=== PATIENT | male | born 1975 | race Caucasian/White ===

== ENCOUNTER 2020-07-15 09:52 | Emergency (ER) | payer BC, OTHER ==
[2020-07-15] MEDS ORDERED: Sodium Chloride 0.9% 10 ML Syringe FLUSH PRN (09:53)
[2020-07-15] MEDS ORDERED: Sodium Chloride 0.9% 2.5 ML Syringe FLUSH PRN (09:53)
--- NOTE | 2020-07-15 10:15 | EDM.PDOC ---
ED HPI GENERAL MEDICAL PROBLEM - General Chief Complaint: Respiratory Problem Stated Complaint: SOB Time Seen by Provider: 07/15/20 09:53 Source of Information: Reports: Patient History Limitations: Reports: No Limitations - History of Present Illness INITIAL COMMENTS - FREE TEXT/NARRATIVE: 44-year-old male with no past medical history presents with shortness of breath. He has been feeling sick for the past week, has been having vomiting and nonbloody diarrhea for the past week. This morning his symptoms worsen, now feels more short of breath and weak, associated with subjective fever, cough with bloody greenish sputum, sweats. He denies headache, abdominal pain, chest pain, changes in urine output, pedal edema. He does not undergo routine physical exams, his last doctor visit was about 3 years ago. He does not use oxygen at home. He does not smoke cigarettes. ROS: A 10-point review of systems, other than pertinent positives and negatives as stated per HPI, is otherwise negative Past medical history: No additional pertinent history Past Surgical history: No additional pertinent history Social history: No additional pertinent history Family history: No additional pertinent history PHYSICAL EXAM Pulse ox: 50%, interpretation = hypoxic General: AOx4, GCS = 15, ill-appearing, moderate distress, obese HEENT: dry mucous membrane Skin: Clammy Neck: supple, no meningismus, no Kernig or Brudzinski Cardiac: S1S2 tachycardia Respiratory: diffuse rales, no wheezing, tachypneic RR = 40, moderate respiratory distress Abdomen: Soft, nontender, no rebound or guarding, nondistended, no pulsatile mass. Back: nontender Musculoskeletal: NVI distally, no deformity Neuro: No focal deficits - Related Data Allergies Allergy/AdvReac Type Severity Reaction Status Date / Time No Known Allergies Allergy Verified 07/15/20 10:00 Home Meds: Home Meds . [No Known Home Meds] 07/15/20 [History] ED ROS GENERAL - Review of Systems Review Of Systems: Comprehensive ROS is negative, except as noted in HPI. (see dictation) ED EXAM, GENERAL - Physical Exam Exam: See Below (see dictation) EKG INTERPRETATION EKG Interpretation Comments: 101 bpm, sinus tachycardia, normal QRS interval, no STEMI. EKG and rhythm strip interpreted by me at 1014 Course - Vital Signs Last Recorded V/S: Last Vital Signs Temp 96.1 F L 07/15/20 10:00 Pulse 90 07/15/20 14:58 Resp 26 H 07/15/20 14:58 BP 157/106 H 07/15/20 14:58 Pulse Ox 93 L 07/15/20 14:58 - Orders/Labs/Meds Orders: Active Orders 24 hr Category Date Time Status Cardiac Monitoring [RC] . DIRECTED Care 07/15/20 09:53 Active EKG Documentation Completion [RC] STAT Care 07/15/20 09:54 Active Pulse Oximetry [RC] ASDIRECTED Care 07/15/20 09:53 Active RT BiPAP/CPAP [RC] ASDIRECTED Care 07/15/20 10:33 Active CULTURE BLOOD [BC] Routine Lab 07/15/20 10:39 Results CULTURE BLOOD [BC] Stat Lab 07/15/20 10:04 Received PROCALCITONIN [REF] Stat Lab 07/15/20 10:04 Received Azithromycin [Zithromax] 500 mg Med 07/15/20 11:00 Active Sodium Chloride 0.9% [Normal Saline (AdvBag)] 250 ml IV ONETIME Sodium Chloride 0.9% [Saline Flush] Med 07/15/20 09:53 Active 10 ml FLUSH ASDIRECTED PRN Sodium Chloride 0.9% [Saline Flush] Med 07/15/20 09:53 Active 2.5 ml FLUSH ASDIRECTED PRN dexAMETHasone [Dexamethasone] Med 07/15/20 10:30 Active 6 mg IVPUSH DAILY Isolation [COMM] Stat Oth 07/15/20 10:07 Active Saline Lock Insert [OM.PC] Stat Oth 07/15/20 09:53 Ordered Medication Orders Dexamethasone (Dexamethasone) 6 mg IVPUSH DAILY JULES Stop: 07/24/20 09:01 Last Admin: 07/15/20 10:26 Dose: 6 mg Documented by: PEDRO Azithromycin 500 mg/ Sodium (Chloride) 250 mls @ 250 mls/hr IV ONETIME JULES Last Admin: 07/15/20 12:09 Dose: 250 mls/hr Documented by: PEDRO Sodium Chloride (Saline Flush) 10 ml FLUSH ASDIRECTED PRN PRN Reason: Keep Vein Open Last Admin: 07/15/20 10:27 Dose: 10 ml Documented by: PEDRO Sodium Chloride (Saline Flush) 2.5 ml FLUSH ASDIRECTED PRN PRN Reason: Keep Vein Open Last Admin: 07/15/20 10:27 Dose: 2.5 ml Documented by: PEDRO Labs: Laboratory Tests 07/15/20 07/15/20 07/15/20 Range/Units 10:04 10:04 10:04 WBC 17.01 H (4.0-11.0) K/uL RBC 5.36 (4.50-5.90) M/uL Hgb 15.8 (13.0-17.0) g/dL Hct 45.8 (38.0-50.0) % MCV 85.4 (80.0-98.0) fL MCH 29.5 (27.0-32.0) pg MCHC 34.5 (31.0-37.0) g/dL RDW Std Deviation 44.0 (28.0-62.0) fl RDW Coeff of Abdi 14 (11.0-15.0) % Plt Count 306 (150-400) K/uL MPV 10.10 (7.40-12.00) fL Add Manual Diff YES Neutrophils % (Manual) 88 H (48.0-80.0) % Band Neutrophils % 2 % Lymphocytes % (Manual) 4 L (16.0-40.0) % Monocytes % (Manual) 6 (0.0-15.0) % Nucleated RBC % 1.4 /100WBC Absolute Seg Neuts 15.0 H (1.4-5.7) Band Neutrophils # 0.3 Lymphocytes # (Manual) 0.7 (0.6-2.4) Monocytes # (Manual) 1.0 H (0.0-0.8) Nucleated RBCs # 0 K/uL INR D-Dimer, Quantitative (0.0-0.50) mg/L FEU ABG pH (7.35-7.45) ABG pCO2 (35-45) mmHG ABG pO2 (75-100) mmHG ABG HCO3 (22-26) mEq/L ABG Total CO2 ABG Base Excess (-2.0-2.0) Lactate (0.20-2.00) mmol/L Sodium 126 L (136-148) mmol/L Potassium 3.5 (3.5-5.1) mmol/L Chloride 87 L (98-107) mmol/L Carbon Dioxide 28.3 (21.0-32.0) mmol/L BUN 15 (7.0-18.0) mg/dL Creatinine 1.5 H (0.8-1.3) mg/dL Est Cr Clr Drug Dosing 76.35 mL/min Estimated GFR (MDRD) 50.6 ml/min Glucose 144 H (74-106) mg/dL Calcium 8.1 L (8.5-10.1) mg/dL Ferritin (26-388) ng/mL Total Bilirubin 0.7 (0.2-1.0) mg/dL AST 41 H (15-37) IU/L ALT 41 (14-63) IU/L Alkaline Phosphatase 39 L (46-116) U/L Lactate Dehydrogenase (81-234) U/L Troponin I 0.100 H* (0.000-0.056) ng/mL C-Reactive Protein (0.00-0.90) mg/dL B-Natriuretic Peptide 93 (<100) PG/ML Total Protein 7.8 (6.4-8.2) g/dL Albumin 2.8 L (3.4-5.0) g/dL Globulin 5.0 H (2.6-4.0) g/dL Albumin/Globulin Ratio 0.6 L (0.9-1.6) SARS-CoV-2 RNA (REJI) (NEGATIVE) 07/15/20 07/15/20 07/15/20 Range/Units 10:04 10:04 10:04 WBC (4.0-11.0) K/uL RBC (4.50-5.90) M/uL Hgb (13.0-17.0) g/dL Hct (38.0-50.0) % MCV (80.0-98.0) fL MCH (27.0-32.0) pg MCHC (31.0-37.0) g/dL RDW Std Deviation (28.0-62.0) fl RDW Coeff of Abdi (11.0-15.0) % Plt Count (150-400) K/uL MPV (7.40-12.00) fL Add Manual Diff Neutrophils % (Manual) (48.0-80.0) % Band Neutrophils % % Lymphocytes % (Manual) (16.0-40.0) % Monocytes % (Manual) (0.0-15.0) % Nucleated RBC % /100WBC Absolute Seg Neuts (1.4-5.7) Band Neutrophils # Lymphocytes # (Manual) (0.6-2.4) Monocytes # (Manual) (0.0-0.8) Nucleated RBCs # K/uL INR 1.09 D-Dimer, Quantitative 2.51 H (0.0-0.50) mg/L FEU ABG pH (7.35-7.45) ABG pCO2 (35-45) mmHG ABG pO2 (75-100) mmHG ABG HCO3 (22-26) mEq/L ABG Total CO2 ABG Base Excess (-2.0-2.0) Lactate (0.20-2.00) mmol/L Sodium (136-148) mmol/L Potassium (3.5-5.1) mmol/L Chloride (98-107) mmol/L Carbon Dioxide (21.0-32.0) mmol/L BUN (7.0-18.0) mg/dL Creatinine (0.8-1.3) mg/dL Est Cr Clr Drug Dosing mL/min Estimated GFR (MDRD) ml/min Glucose (74-106) mg/dL Calcium (8.5-10.1) mg/dL Ferritin 729 H (26-388) ng/mL Total Bilirubin (0.2-1.0) mg/dL AST (15-37) IU/L ALT (14-63) IU/L Alkaline Phosphatase (46-116) U/L Lactate Dehydrogenase (81-234) U/L Troponin I (0.000-0.056) ng/mL C-Reactive Protein (0.00-0.90) mg/dL B-Natriuretic Peptide (<100) PG/ML Total Protein (6.4-8.2) g/dL Albumin (3.4-5.0) g/dL Globulin (2.6-4.0) g/dL Albumin/Globulin Ratio (0.9-1.6) SARS-CoV-2 RNA (REJI) (NEGATIVE) 07/15/20 07/15/20 07/15/20 Range/Units 10:04 10:14 10:14 WBC (4.0-11.0) K/uL RBC (4.50-5.90) M/uL Hgb (13.0-17.0) g/dL Hct (38.0-50.0) % MCV (80.0-98.0) fL MCH (27.0-32.0) pg MCHC (31.0-37.0) g/dL RDW Std Deviation (28.0-62.0) fl RDW Coeff of Abdi (11.0-15.0) % Plt Count (150-400) K/uL MPV (7.40-12.00) fL Add Manual Diff Neutrophils % (Manual) (48.0-80.0) % Band Neutrophils % % Lymphocytes % (Manual) (16.0-40.0) % Monocytes % (Manual) (0.0-15.0) % Nucleated RBC % /100WBC Absolute Seg Neuts (1.4-5.7) Band Neutrophils # Lymphocytes # (Manual) (0.6-2.4) Monocytes # (Manual) (0.0-0.8) Nucleated RBCs # K/uL INR D-Dimer, Quantitative (0.0-0.50) mg/L FEU ABG pH 7.496 H (7.35-7.45) ABG pCO2 37 (35-45) mmHG ABG pO2 74 L (75-100) mmHG ABG HCO3 29 H (22-26) mEq/L ABG Total CO2 24.4 ABG Base Excess 5.1 H (-2.0-2.0) Lactate 2.1 H* (0.20-2.00) mmol/L Sodium (136-148) mmol/L Potassium (3.5-5.1) mmol/L Chloride (98-107) mmol/L Carbon Dioxide (21.0-32.0) mmol/L BUN (7.0-18.0) mg/dL Creatinine (0.8-1.3) mg/dL Est Cr Clr Drug Dosing mL/min Estimated GFR (MDRD) ml/min Glucose (74-106) mg/dL Calcium (8.5-10.1) mg/dL Ferritin (26-388) ng/mL Total Bilirubin (0.2-1.0) mg/dL AST (15-37) IU/L ALT (14-63) IU/L Alkaline Phosphatase (46-116) U/L Lactate Dehydrogenase 569 H (81-234) U/L Troponin I (0.000-0.056) ng/mL C-Reactive Protein 52.70 H (0.00-0.90) mg/dL B-Natriuretic Peptide (<100) PG/ML Total Protein (6.4-8.2) g/dL Albumin (3.4-5.0) g/dL Globulin (2.6-4.0) g/dL Albumin/Globulin Ratio (0.9-1.6) SARS-CoV-2 RNA (REJI) (NEGATIVE) 07/15/20 Range/Units 10:16 WBC (4.0-11.0) K/uL RBC (4.50-5.90) M/uL Hgb (13.0-17.0) g/dL Hct (38.0-50.0) % MCV (80.0-98.0) fL MCH (27.0-32.0) pg MCHC (31.0-37.0) g/dL RDW Std Deviation (28.0-62.0) fl RDW Coeff of Abdi (11.0-15.0) % Plt Count (150-400) K/uL MPV (7.40-12.00) fL Add Manual Diff Neutrophils % (Manual) (48.0-80.0) % Band Neutrophils % % Lymphocytes % (Manual) (16.0-40.0) % Monocytes % (Manual) (0.0-15.0) % Nucleated RBC % /100WBC Absolute Seg Neuts (1.4-5.7) Band Neutrophils # Lymphocytes # (Manual) (0.6-2.4) Monocytes # (Manual) (0.0-0.8) Nucleated RBCs # K/uL INR D-Dimer, Quantitative (0.0-0.50) mg/L FEU ABG pH (7.35-7.45) ABG pCO2 (35-45) mmHG ABG pO2 (75-100) mmHG ABG HCO3 (22-26) mEq/L ABG Total CO2 ABG Base Excess (-2.0-2.0) Lactate (0.20-2.00) mmol/L Sodium (136-148) mmol/L Potassium (3.5-5.1) mmol/L Chloride (98-107) mmol/L Carbon Dioxide (21.0-32.0) mmol/L BUN (7.0-18.0) mg/dL Creatinine (0.8-1.3) mg/dL Est Cr Clr Drug Dosing mL/min Estimated GFR (MDRD) ml/min Glucose (74-106) mg/dL Calcium (8.5-10.1) mg/dL Ferritin (26-388) ng/mL Total Bilirubin (0.2-1.0) mg/dL AST (15-37) IU/L ALT (14-63) IU/L Alkaline Phosphatase (46-116) U/L Lactate Dehydrogenase (81-234) U/L Troponin I (0.000-0.056) ng/mL C-Reactive Protein (0.00-0.90) mg/dL B-Natriuretic Peptide (<100) PG/ML Total Protein (6.4-8.2) g/dL Albumin (3.4-5.0) g/dL Globulin (2.6-4.0) g/dL Albumin/Globulin Ratio (0.9-1.6) SARS-CoV-2 RNA (REJI) POSITIVE H (NEGATIVE) Meds: Medications Generic Name Dose Route Start Last Admin Trade Name Freq PRN Reason Stop Dose Admin Dexamethasone 6 mg 07/15/20 10:30 07/15/20 10:26 Dexamethasone IVPUSH 07/24/20 09:01 6 mg DAILY JULES Administration Azithromycin 500 mg/ Sodium 250 mls @ 250 mls/hr 07/15/20 11:00 07/15/20 12:09 Chloride IV 250 mls/hr ONETIME JULES Administration Sodium Chloride 10 ml 07/15/20 09:53 07/15/20 10:27 Saline Flush FLUSH 10 ml ASDIRECTED PRN Administration Keep Vein Open Sodium Chloride 2.5 ml 07/15/20 09:53 07/15/20 10:27 Saline Flush FLUSH 2.5 ml ASDIRECTED PRN Administration Keep Vein Open Discontinued Medications Generic Name Dose Route Start Last Admin Trade Name Javed PRN Reason Stop Dose Admin Aspirin 324 mg 07/15/20 11:35 07/15/20 12:08 Aspirin PO 07/15/20 11:36 324 mg ONETIME ONE Administration Ceftriaxone Sodium 1 gm 07/15/20 10:59 07/15/20 12:02 Rocephin IVPUSH 07/15/20 11:00 Not Given ONETIME ONE Heparin Sodium (Porcine) 5,000 units 07/15/20 11:35 07/15/20 12:11 Heparin Sodium IVPUSH 07/15/20 11:36 5,000 units ONETIME ONE Administration Heparin Sodium/Sodium Chloride 25,000 unit in 500 mls @ 52.907 mls/hr 07/15/20 11:45 Heparin-1/2ns 25,000 Units/500 IV TITRATE JULES Protocol 18 UNITS/KG/HR Ceftriaxone Sodium/Dextrose Confirm 07/15/20 12:00 07/15/20 12:47 Rocephin In Dextrose,Iso-Osm 1 Gm/50 Ml Administered 07/15/20 12:01 Not Given Dose 50 mls @ as directed .ROUTE .STK-MED ONE Ceftriaxone Sodium/Dextrose 1 50 mls @ 100 mls/hr 07/15/20 12:01 07/15/20 12:11 gm/ Premix IV 07/15/20 12:30 100 mls/hr ONETIME ONE Administration Heparin Sodium/Sodium Chloride Confirm 07/15/20 12:19 07/15/20 12:46 Heparin-1/2ns 25,000 Units/500 Administered 07/15/20 12:20 Not Given Dose 25,000 unit in 500 mls @ as directed IV .STK-MED ONE Iopamidol 100 ml 07/15/20 14:48 07/15/20 14:49 Isovue-370 (76%) IVPUSH 07/15/20 14:49 100 ml ONETIME STA Administration - Re-Assessments/Exams Free Text/Narrative Re-Assessment/Exam: 07/15/20 10:10 Patient is tachypneic, RR = 40, satting 50% on room air, immediately placed on 15 L NRB, pulse ox improved to 89%. Will transition to BiPAP (09/26 at 70%) for work of breathing. 07/15/20 11:02 Patient will require transfer to outside facility for the need of higher level of care not available at this facility, and the need for senior staff consultant services unavailable at this facility. Any emergency conditions have been stabilized to the ability of the ED prior to the transfer. 07/15/20 11:21 Patient given IV rocephin and azithromycin, will give IV heparin. 07/15/20 11:33 Lillian Martínez accepted patient's transfer at [facility]. Patient to go by flight. 07/15/20 12:13 I reassessed the patient, who is feeling better with BiPap. He is now not tachypneic and speaking full sentences. Flight crew to arrive at 1330. 07/15/20 12:46 I reassessed the patient, who is feeling better on bipap. 07/15/20 15:13 Patient is still boarding in the ER awaiting for flight crew, he is tolerating BiPAP and feels improved. MEDICAL DECISION MAKING: I reviewed the patients past medical records, lab and radiographic findings. I discussed the case with the patient. My differential diagnosis included: COVID, pneumonia, CHF, ACS. Patient CHF was normal despite findings concerning for CHF exacerbation and flash pulmonary edema as he had diffuse rales. Given his normal BNP, my suspicion for CHF is lower. His cover test was positive, I suspect his respiratory symptoms are secondary to the COVID. He was given IV Rocephin and azithromycin and dexamethasone 6 mg IV. His troponin was elevated at 0.10 with a nonischemic EKG, he was treated with heparin bolus and drip and aspirin 324 mg p.o. his work of breathing improved with BiPAP. This patient was evaluated for the symptoms described in the history of present illness. They were evaluated in the context of the global COVID-19 pandemic, which necessitated consideration that the patient might be at risk for infection with the SARS-CoV-2 virus that causes COVID-19. Institutional protocols and algorithms that pertain to the evaluation of patients at risk for COVID-19 are in a state of rapid change based on information released by regulatory bodies including the CDC and federal and state organizations. These policies and algorithms were followed during the patient's care. I wore full PPE, N95, face shield, gown and gloves throughout my evaluation and care of this patient. I recommended home isolation. given home isolation instructions. Patient was in no respiratory distress, not hypoxic, otherwise well appearing. I instructed patient to return immediately for worsening symptoms, sob, chest pain, lightheadedness or other concerns. Patient voiced understanding and questions answered. Departure - Departure Time of Disposition: 11:05 Disposition: DC/Tfer to Other 70 Condition: Fair Clinical Impression: Elevated troponin, Respiratory distress, Hyponatremia, Renal insufficiency, mild, Hypoxic, COVID-19 - Discharge Information *PRESCRIPTION DRUG MONITORING PROGRAM REVIEWED*: Not Applicable *COPY OF PRESCRIPTION DRUG MONITORING REPORT IN PATIENT MARGE: Not Applicable Instructions: Shortness of Breath, Adult, [id number], Hypoxemia, COVID-19, COVID-19: How to Protect Yourself and Others - CDC, Prevent the Spread of COVID- 19 if You Are Sick - [facility] Referrals: PCP,Unobtain [Primary Care Provider] - Forms: ED Department Discharge Critical Care Note - Critical Care Note Total Time (mins): 128 Comments: CRITICAL CARE: The high probability of sudden, clinically significant deterioration in the patient's condition required the highest level of my preparedness to intervene urgently. The services I provided to this patient were to treat and/or prevent clinically significant deterioration. Services included the following: chart data review, reviewing nursing notes and/or old charts, documentation time, senior staff consultant collaboration regarding findings and treatment options, medication orders and management, direct patient care, vital sign assessments and ordering, interpreting and reviewing diagnostic studies/lab tests. Aggregate critical care time includes only time during which I was engaged in work directly related to the patient's care, as described above, whether at the bedside or elsewhere in the Emergency Department. It did not include time spent performing other reported procedures or the services of residents, students, nurses or physician assistants. Frequent interventions and/or frequent repeat evaluations were required as well as counseling and coordination of care regarding prognosis, treatments, and discussions with patient, staff and consultants. Critical Care (excluding other procedures): 128 minutes Sepsis Event Note (ED) - Evaluation Sepsis Screening Result: Possible Sepsis Risk - Focused Exam Vital Signs: Vital Signs Temp Pulse Resp BP Pulse Ox 07/15/20 14:58 90 26 H 157/106 H 93 L 07/15/20 14:28 95 21 H 190/116 H 97 07/15/20 13:58 95 26 H 171/93 H 92 L 07/15/20 13:28 92 23 H 172/102 H 96 07/15/20 12:58 92 26 H 171/105 H 96 07/15/20 12:38 92 26 H 170/104 H 93 L 07/15/20 11:28 93 20 167/107 H 93 L 07/15/20 10:59 104 H 27 H 151/112 H 95 07/15/20 10:29 103 H 30 H 161/96 H 81 L 07/15/20 10:00 96.1 F L 113 H 36 H 212/11 H 86 L - My Orders Last 24 Hours: My Active Orders 07/15/20 09:53 Cardiac Monitoring [RC] . DIRECTED Pulse Oximetry [RC] ASDIRECTED Sodium Chloride 0.9% [Saline Flush] 10 ml FLUSH ASDIRECTED PRN Sodium Chloride 0.9% [Saline Flush] 2.5 ml FLUSH ASDIRECTED PRN Saline Lock Insert [OM.PC] Stat 07/15/20 09:54 EKG Documentation Completion [RC] STAT 07/15/20 10:04 CULTURE BLOOD [BC] Stat PROCALCITONIN [REF] Stat 07/15/20 10:07 Isolation [COMM] Stat 07/15/20 10:30 dexAMETHasone [Dexamethasone] 6 mg IVPUSH DAILY 07/15/20 10:33 RT BiPAP/CPAP [RC] ASDIRECTED 07/15/20 10:39 CULTURE BLOOD [BC] Routine 07/15/20 11:00 Azithromycin [Zithromax] 500 mg Sodium Chloride 0.9% [Normal Saline (AdvBag)] 250 ml IV ONETIME - Assessment/Plan Last 24 Hours: My Active Orders 07/15/20 09:53 Cardiac Monitoring [RC] . DIRECTED Pulse Oximetry [RC] ASDIRECTED Sodium Chloride 0.9% [Saline Flush] 10 ml FLUSH ASDIRECTED PRN Sodium Chloride 0.9% [Saline Flush] 2.5 ml FLUSH ASDIRECTED PRN Saline Lock Insert [OM.PC] Stat 07/15/20 09:54 EKG Documentation Completion [RC] STAT 07/15/20 10:04 CULTURE BLOOD [BC] Stat PROCALCITONIN [REF] Stat 07/15/20 10:07 Isolation [COMM] Stat 07/15/20 10:30 dexAMETHasone [Dexamethasone] 6 mg IVPUSH DAILY 07/15/20 10:33 RT BiPAP/CPAP [RC] ASDIRECTED 07/15/20 10:39 CULTURE BLOOD [BC] Routine 07/15/20 11:00 Azithromycin [Zithromax] 500 mg Sodium Chloride 0.9% [Normal Saline (AdvBag)] 250 ml IV ONETIME
[2020-07-15] MEDS ORDERED: Dexamethasone 10 MG/ML SDV IVPUSH SCH (10:30)
[2020-07-15 10:54] LABS: CARBON DIOXIDE,CO2 28.3 mmol/L (21.0-32.0); POTASSIUM,K 3.5 mmol/L (3.5-5.1)
[2020-07-15] MEDS ORDERED: cefTRIAXone 1 GM Vial IVPUSH ONE (10:59)
[2020-07-15] MEDS ORDERED: Azithromycin 500 MG in Sodium Chloride 0.9% 250 ML IV SCH (11:00)
--- NOTE | 2020-07-15 11:23 | CR ---
Chest: Frontal view of the chest was obtained. Comparison: No previous chest imaging. Diffuse parenchymal densities are seen on both sides of the chest. Nodular density noted within the left upper chest measuring 4.9 cm. Heart size and mediastinum are normal. Bony structures are grossly intact. Impression: 1. Multiple parenchymal densities on both sides of the chest. Findings are suspicious for viral pneumonia. Please correlate if patient is Covid positive. 2. 4.9 cm nodular density within the left upper chest. This may represent additional infection although difficult to exclude mass. Continued follow-up recommended by chest x-ray to make sure this resolves. Diagnostic code #5 This report was dictated in MDT
[2020-07-15] MEDS ORDERED: Heparin Sodium 5,000 Units/ML Vial IVPUSH ONE (11:35)
[2020-07-15] MEDS ORDERED: Aspirin 81 MG Tab.Chew PO ONE (11:35)
--- NOTE | 2020-07-15 11:39 | CR ---
Abdomen: Supine view of the abdomen was obtained utilizing portable technique. Findings: Study is a slightly limited due to patient body size. Bowel gas pattern is felt to be within normal limits. Bony structures are grossly intact. No abnormal calcifications are seen. Impression: 1. Slightly limited study as noted above. 2. Nothing acute is definitely appreciated. Diagnostic code #2 This report was dictated in MDT
[2020-07-15] MEDS ORDERED: Heparin Sod,Pork In 0.45% Nacl 25,000 UNIT/500 ML IV.SOLN IV SCH (11:45)
[2020-07-15] MEDS ORDERED: cefTRIAXone 1 GM in Premix Bag 1 BAG IV ONE (12:01)
[2020-07-15] MEDS ORDERED: Heparin Sod,Pork In 0.45% Nacl 25,000 UNIT/500 ML IV.SOLN IV ONE (12:19)
--- NOTE | 2020-07-15 12:29 | CT ---
CT chest Technique: Multiple axial sections through the chest were obtained. Intravenous contrast was utilized. Reconstructed coronal and sagittal images were obtained. Findings: Significant artifact is noted due to dose. Pulmonary arteries are not optimally opacified. There are no filling defects within the main pulmonary arteries or within the proximal segmental branches. No comment about more further distal pulmonary arteries can be made. Aorta shows no aneurysm. Heart is slightly enlarged. Scattered lymph nodes within the mediastinum most likely on a reactive basis. No gross abnormality within the visualized upper abdomen. Bone window settings were reviewed which shows no acute osseous finding. Diffuse parenchymal changes are seen throughout both lungs. Nodular density noted on chest x-ray felt to represent focal confluence of these parenchymal densities rather than representing an actual mass. Impression: 1. Diffuse parenchymal change within both lungs. No mass is seen. Findings highly suspicious for Covid pneumonia. 2. Less than optimal evaluation for pulmonary emboli. No larger pulmonary emboli within the main or proximal segmental branches. 3. Mediastinal lymph nodes most likely reactive from the lung process. Diagnostic code #5 This report was dictated in MDT
[2020-07-15] MEDS ORDERED: Iopamidol 755 Mg/ML 100 ML Bottle IVPUSH STA (14:48)
== END 2020-07-15 16:05 | disposition other institution (70) ==
LOC: MW.ED 09:52
DX: U07.1 COVID-19 (principal); E87.1 Hypo-osmolality and hyponatremia; N28.9 Disorder of kidney and ureter, unspecified; R79.89 Other specified abnormal findings of blood chemistry; R06.03 Acute respiratory distress; R09.02 Hypoxemia; R00.0 Tachycardia, unspecified
CPT/HCPCS: 36415; 36600; 71045; 71275; 74018; 80053; 82728; 82803; 83605; 83615; 83880; 84145; 84484; 85025; 85379; 85610; 86140; 87040; 87635; 93005; 94660; 96365; 96375; 99291; 99292; A9270; J0456; J0696; J1100; J1644; J7050; Q9967; 99285; U0002

== ENCOUNTER 2025-05-12 11:57 | Emergency (ER) | payer SELFPAY | END 2025-05-12 14:28 | disposition home or self-care (01) | LOC: MW.ED 11:57 | DX: R04.0 Epistaxis (principal) | CPT/HCPCS: 30901; 99283; A9270; 99282 ==